=== PATIENT | female | born 1945 | race Hispanic/Latino ===

== ENCOUNTER 2018-12-30 23:12 | Emergency (ER) | payer OTHER ==
[~2018-12-30] VITALS: Ht 167.6 cm; Wt 77.1 kg
--- OUTSIDE RECORDS SUMMARY | 2018-12-30 23:14 | XMS REPORT ---
Author Author [facility] Address Unknown Phone Unavailable Care Team Providers Care Rn Endoscopy Name Role Phone BOGDAN ARGUETA Unavailable Unavailable Problems This patient has no known problems. Allergies, Adverse Reactions, Alerts This patient has no known allergies or adverse reactions. Medications This patient has no known medications. Results Test Description Test Time Test Comments Text Results Atomic Results Result Comments TISSUE EXAM 2018-12-25 09:12:00 Surgical Pathology Report Case: [id number] Authorizing Provider: Jak Argueta MD Collected: 12/19/2018 1012 Ord ering Location: [facility] PERIOPERATIVE Received: 12/19/2018 1158 SERVICES Pathologist: Abraham Huston MD Specimens: A) - Lymph Node, Axillary, Right, right axillary sentinel lymph node B) - Breast, Right, RIGHT BREAST LUMPECTOMY, SHORT STITICH SUPERIOR, LONG STITCH LATERAL A. LYMPH NODE, RIGHT SENTINEL, BIOPSY - ONE LYMPH NODE, NEGATIVE FOR CARCINOMA (0/1)B. BREAST, RIGHT NEEDLE LOCALIZED LUMPECTOMY - INFILTRATING DUCTAL CARCINOMA, MUCINOUS TYPE - GREATEST MICROSCOPIC MEASUREMENT : 14MM - HISTOLOGIC GRADE : 2/3 (2 + 2 + 2) BY ESBR CRITERIA - MITOTIC COUNT : 8 MITOSIS PER 10 HPF'S - NO LYMPHOVASCULAR INVASION SEEN - NO TUMOR INFILTRATING LYMPHOCYTES - SURGICAL MARGINS : NEGATIVE - CLOSEST INFERIOR : 5.5MM - POSTERIOR : 6MM - SUPERIOR : 10MM - ALL OTHERS > 10MM - NO INSITU CARCINOMA SEEN - BIOPSY SITE CHANGES (CLIP X 1) IDENTIFIED - COLUMNAR CELL CHANGES AND HYPERPLASIA - FOCALLY WITH INTRALUMINAL MUCIN SECRETION - ATYPICAL DUCTAL HYPERPLASIA, FOCAL - USUAL DUCTAL HYPERPLASIA - TINY MUCOCELE LIKE LESION - BENIGN BREAST TISSUE ASSOCIATED WITH CALCIFICATIONS Signing Pathologist Direct Phone Line: [phone] signed by Abraham Huston MD on 12/25/2018 at 9:12 AMTUMOR STAGING (PATHOLOGY) Anatomic site of tumor : right breastHistologic type : Infiltrating ductal carcinoma, mucinous typeHistologic grade : G2, moderately differentiatedTumor size : 14mmPrimary tumor (T) : pT1c Lymph node (N) : [id number] grouping : IAMargins : NegativeLYMPH NODE SUMMARYTotal # of sentinel lymph nodes : 1Total # of non-sentinel lymph nodes : 0Total # of positive sentinel lymph nodes : 0INVASIVE CARCINOMA OF THE BREAST (Breast Invasive - All Specimens)SPECIMEN Procedure: Excision (less than total mastectomy) Specimen Laterality: Right TUMOR Histologic Type: Mucinous carcinoma Glandular (Acinar) / Tubular Differentiation: Score 2 Nuclear Pleomorphism: Score 2 Mitotic Rate: Score 2 (4-7 mitoses per mm2) Overall Grade: Grade 2 (scores of 6 or 7) Tumor Size: Greatest dimension of largest invasive focus in Millimeters (mm): 14 Millimeters (mm) Tumor Focality: Single focus of invasive carcinoma Ductal Carcinoma In Situ (DCIS): Not identified Lobular Carcinoma In Situ (LCIS): No LCIS in specimen Tumor Extent: Accessory Findings: Lymphovascular Invasion: Not identified Dermal Lymphovascular Invasion: No skin present Microcalcifications: Present in non-neoplastic tissue Treatment Effect: No known presurgical therapy MARGINS Invasive Carcinoma Margins: Uninvolved by invasive carcinoma Distance from Closest Margin in Millimeters (mm): 5.5 Millimeters (mm) Closest Margin: Inferior LYMPH NODES Regional Lymph Nodes: Uninvolved by tumor cells Number of Lymph Nodes Examined: 1 Number of [place] Nodes Examined: 1 PATHOLOGIC STAGE CLASSIFICATION (pTNM, AJCC 8th Edition) TNM Descriptors: Not applicable Primary Tumor (Invasive Carcinoma) (pT): pT1c Regional Lymph Nodes (pN): Modifier: (sn): Only sentinel node(s) evaluated. Category (pN): pN0 A. 63083 X 1B. 32919 X 1A. Lymph node, right axillary sentinel; B. Breast, rightA. Received in formalin labeled with patient's name and "right axillary sentinel lymph node" consists of a piece of fibroadipose tissue measuring 3.2 x 2.0 x 1.0 cm. The specimen is bisected and reveals a lymph node with ink dye measuring 2.8 cm in greatest dimension. The specimen is entirely submitted as follows: A1 and A2 - one bisected lymph node; A3 - remaining fat.B. Received in formalin labeled with patient's name and "right breast lumpectomy" consists of a lump of fibroadipose tissue measuring 3.2 cm superior to inferior, 5.1 cm medial to lateral, and 3.0 cm superficial to deep, and weighing 18 gm. The specimen is inked as follows: superior - blue; inferior - red; posterior - black; anterior - yellow. The Faxitron examination reveals a guide wire and a small metallic clip. The specimen is serially sectioned parallel to superior-inferior axis into 8 slices. It reveals a spiculated mass (0.6 cm superior to inferior, 1.0 cm medial to lateral, and 0.6 cm superficial to deep) with mucinous nature, right adjacent to the metallic clip. It is 0.6 cm from the superior, 0.8 cm from the inferior, 2.0 cm from the medial, 2.0 cm from the lateral, 1.2 cm from the posterior, and 0.8 cm from the anterior margins. The entire specimen is submitted as follows: B1 - slice #1 (medial-most); B2 - slice #2; B3 and B4 - slice #3; B5 and B6 - slice #4 (tumor); B7 and B8 - slice #5 (tumor and clip); B9 and B10 - slice #6; B11 and B12 - slice #7; and B13 - slice #8 (medial most). Please see attached diagram. KEARA Performed.[facility], Department of Pathology, [address] [place] [address], MM, U/S, BREAST, PATHOLOGY, LOCAL, RIGHT 2018-12-19 08:46:00 Reason for exam:- >breast cancer #[id number] - MM, U/S, BREAST, PATHOLOGY, LOCAL, RIGHTULTRASOUND GUIDED WIRE LOCALIZATION RIGHT BREAST WITH POST DIGITAL MAMMOGRAPHIC IMAGIN12/19/2018PATIENT CONSENT: The procedure, risks and benefits, alternatives were discussed with the patient. Informed consent was obtained. A time-out was performed. A wire localization using ultrasound guidance was performed for the mass located in the right breast at 3-4 o'clock middle depth. This was described on the previous biopsy report. The skin was prepped in the usual manner. The localization was approached from the medial aspect. A wire was inserted into the targeted area under ultrasound guidance. Post placement digital mammographic imaging demonstrates the tip traverses the targeted area. IMPRESSION: WIRE LOCALIZATIONWire localization for the mass in the right breast at 3-4 o'clock middle depth was successful with no apparent post procedure complications. Frederick Orta M.D. pth/:12/19/2018 08:46:40 Meat Scrubber: Cher Luna RDDC, [facility] [id number]
--- OUTSIDE RECORDS SUMMARY | 2018-12-30 23:14 | XMS REPORT | Clinical Summary ---
Author Author [facility] Address Unknown Phone Unavailable Care Team Providers Care Hospice Aide Name Role Phone Nila Dejesus MD PCP Allergies No Known Allergies Medications End Date Status Medication Sig Dispensed Refills Start Date Active coenzyme Q10 100 mg Take 100 mg 0 capsule by mouth daily. Active loratadine (CLARITIN) 10 Take 10 mg by 0 mg tablet mouth daily. Active multivitamin Take 1 tablet 0 (MULTIVITAMIN) per tablet by mouth daily. Active olopatadine (PATADAY) 0.2 Apply to 0 % Drop eye(s). 12/29/2018 acetaminophen-codeine Take 1-2 30 tablet 0 (TYLENOL #3) 300-30 mg tablets by 9 per tablet mouth every 6 (six) hours as needed for up to 10 days. Max Daily Amount: 8 tablets 12/26/2018 ondansetron (ZOFRAN) 4 MG Take 1 tablet 20 tablet 0 tablet (4 mg total) 9 by mouth 3 (three) times daily as needed for Nausea for up to 7 days. Active Problems Problem Noted Date Breast cancer, right 12/19/2018 Encounters Care Team Description Date Type Specialty Jak Argueta MD LUMPECTOMY 12/19/2018 Surgery Jonathan Gordon Jr., MD 12/19/2018 Anesthesia Event Jak Argueta MD Malignant neoplasm of right breast in female, estrogen receptor positive, unspecified site of breast (HCC) (Primary Dx) 12/19/2018 Hospital Encounter Jak Argueta MD 12/18/2018 Outside Orders Central Scheduling Resource[facility] Phone 12/11/2018 Hospital Pre-Admission Testing Encounter after 12/29/2017 Social History Date Tobacco Use Types Packs/Day Years Used Never Smoker Smokeless Tobacco: Never Used Alcohol Use Drinks/Week oz/Week Comments Yes rare Sex Assigned at Date Recorded Not on file Industry Job Start Date Occupation Not on file Not on file Not on file Travel End Travel History Travel Start No recent travel history available. Last Filed Vital Signs Time Taken Vital Sign Reading 12/19/2018 11:15 AM CDT Blood Pressure 126/63 12/19/2018 11:15 AM CDT Pulse 64 12/19/2018 11:15 AM CDT Temperature 36.4 C (97.5 F) 12/19/2018 11:15 AM CDT Respiratory Rate 18 12/19/2018 11:15 AM CDT Oxygen Saturation 97% - Inhaled Oxygen - Concentration 12/19/2018 9:20 AM CDT Weight 82.6 kg (182 lb) 12/19/2018 9:20 AM CDT Height 165.1 cm (5' 5") 12/19/2018 9:20 AM CDT Body Mass Index 30.29 Plan of Treatment Not on file Procedures Comments Procedure Name Priority Date/Time Associated Diagnosis TISSUE EXAM AP Routine 12/19/2018 10:12 AM CDT BIOPSY/EXCISION,SENTINEL 12/19/2018 Abnormal mammogram with LYMPH NODE 10:00 AM CDT microcalcification Case Notes 60 MINS PER RHONA Special Needs (ULTRASOUN D NEEDLE LOCALIZATI ON SCHEDULED FOR 07 WITH PATSY) LUMPECTOMY 12/19/2018 Abnormal mammogram with 10:00 AM CDT microcalcification Case Notes 60 MINS PER RHNOA Special Needs (ULTRASOUN D NEEDLE LOCALIZATI ON SCHEDULED FOR 0730 WITH PATYS) US PATHOLOGY LOCALIZATION Routine 12/19/2018 RIGHT BREAST 8:34 AM CDT after 12/29/2017 Results * Tissue Exam (12/19/2018 10:12 AM CDT) Case Report Surgical Pathology [facility] Report [facility] Case: [id number] Authorizing Provider:Jak Argueta MDCollected: 12/19/2018 1012 Ordering Location: [facility] PERIOPERATIVE Received: 12/19/2018 1158 SERVICES Pathologist: Abraham Huston MD Specimens: A) - Lymph Node, Axillary, Right, right axillary sentinel lymph node B) - Breast, Right, RIGHT BREAST LUMPECTOMY, SHORT STITICH SUPERIOR, LONG STITCH LATERAL DIAGNOSIS A. LYMPH NODE, RIGHT SENTINEL, [facility] BIOPSY [facility] - ONE LYMPH NODE, NEGATIVE FOR CARCINOMA (0/1) B. BREAST, RIGHT NEEDLE LOCALIZED LUMPECTOMY - INFILTRATING [...] WITH CALCIFICATIONS Signing Pathologist Direct Phone Line: [phone] COMMENT TUMOR STAGING (PATHOLOGY) [facility] Anatomic site of tumor : right [facility] breast Histologic type : Infiltrating ductal carcinoma, mucinous type Histologic grade : G2, moderately differentiated Tumor size : 14mm Primary tumor (T) : pT1c Lymph node (N) : pN0 Stage grouping : IA Margins : Negative LYMPH NODE SUMMARY Total # of sentinel lymph nodes : 1 Total # of non-sentinel lymph nodes : 0 Total # of positive sentinel lymph nodes : 0 SYNOPTIC REPORT INVASIVE CARCINOMA OF THE [facility] BREAST(Breast Invasive - [facility] All Specimens) SPECIMEN Procedure:Excision (less than total mastectomy) Specimen Laterality:Right TUMOR Histologic Type:Mucinous carcinoma Glandular (Acinar) / Tubular Differentiation:Score 2 Nuclear Pleomorphism:Score 2 Mitotic Rate:Score 2 (4-7 mitoses per mm2) Overall Grade:Grade 2 (scores of 6 or 7) Tumor Size:Greatest dimension of largest invasive focus in Millimeters (mm): 14 Millimeters (mm) Tumor Focality:Single focus of invasive carcinoma Ductal Carcinoma In Situ (DCIS):Not identified Lobular Carcinoma In Situ (LCIS):No LCIS in specimen Tumor Extent: Accessory Findings: Lymphovascular Invasion:Not identified Dermal Lymphovascular Invasion:No skin present Microcalcifications:Pr esent in non-neoplastic tissue Treatment Effect:No known presurgical therapy MARGINS Invasive Carcinoma Margins:Uninvolved by invasive carcinoma Distance from Closest Margin in Millimeters (mm):5.5 Millimeters (mm) Closest Margin:Inferior LYMPH NODES Regional Lymph Nodes:Uninvolved by tumor cells Number of Lymph Nodes Examined:1 Number of [place] Nodes Examined:1 PATHOLOGIC STAGE CLASSIFICATION (pTNM, AJCC 8th Edition) TNM Descriptors:Not applicable Primary Tumor (Invasive Carcinoma) (pT):pT1c Regional Lymph Nodes (pN): Modifier:(sn): Only sentinel node(s) evaluated. Category (pN):pN0 CPT Code(s) A. [address] [facility] B. 58230 X 1 [facility] SPECIMEN SOURCE A. Lymph node, right axillary [facility] sentinel; B. Breast, right [facility] GROSS DESCRIPTION A. Received in formalin [facility] labeled with patient's name [facility] and "right axillary sentinel lymph node" consists of a piece of fibroadipose tissue measuring 3.2 x 2.0 x 1.0 cm. The specimen is bisected and reveals a lymph node with ink dye measuring 2.8 cm in greatest dimension. The specimen is entirely submitted as follows: A1 and A2 - one bisected lymph node; A3 - remaining fat. B. Received in formalin labeled with patient's name [...] #8 (medial most). Please see attached diagram. DK MICROSCOPIC DESCRIPTION A-B. Performed. [facility] Professional component [facility] was performed at Center, Department of [facility] Pathology, [address] [place] [address], [place] [address], Specimen Tissue - Lymph Node, Axillary, Right Tissue - Right breast structure (body structure) Performing Organization Address City/State/Zipcode Phone Number [address] [phone] [facility] * US pathology localization right breast (12/19/2018 8:34 AM CDT) Specimen Narrative Performed At [facility] #[id number] - MM, U/S, BREAST, PATHOLOGY, LOCAL, RIGHT ULTRASOUND GUIDED WIRE LOCALIZATION RIGHT BREAST WITH POST DIGITAL MAMMOGRAPHIC IMAGIN12/19/2018 PATIENT CONSENT: The procedure, risks and benefits, alternatives were discussed with the patient. Informed consent was obtained. A time-out was performed. A wire localization using ultrasound guidance was performed for the mass located in the right breast at 3-4 o'clock middle depth.This was described on the previous biopsy report.The skin was prepped in the usual manner.The localization was approached from the medial aspect.A wire was inserted into the targeted area under ultrasound guidance.Post placement digital mammographic imaging demonstrates the tip traverses the targeted area. IMPRESSION: WIRE LOCALIZATION Wire localization for the mass in the right breast at 3-4 o'clock middle depth was successful with no apparent post procedure complications. Frederick Orta M.D. pth/:12/19/2018 08:46:40 Field Advisor: Cher Luna [facility], [facility] [id number] Procedure Note Interface, External Ris In - 12/19/2018 11:32 AM CDT #[id number] - MM, U/S, BREAST, PATHOLOGY, LOCAL, RIGHT ULTRASOUND GUIDED WIRE LOCALIZATION RIGHT BREAST WITH POST DIGITAL MAMMOGRAPHIC IMAGIN12/19/2018 PATIENT CONSENT: The procedure, risks and benefits, alternatives [...] tip traverses the targeted area. IMPRESSION: WIRE LOCALIZATION Wire localization for the mass in the right breast at 3-4 o'clock middle depth was successful with no apparent post procedure complications. Frederick Orta M.D. pth/:12/19/2018 08:46:40 Field Advisor: Cher Luna RDMS, [facility] [id number] Performing Organization Address City/State/Zipcode Phone Number GE RIS after 12/29/2017 Insurance Payer Benefit Subscriber ID Type Phone Address Plan / Group [employer] [facility] Advance Directives For more information, please contact: [facility] [address] [place] [address] Date Inactivated Comments Code Status Date Activated 12/19/2018 1:38 PM Full Code 12/19/2018 7:57 AM This code status was determined by: Patient
[2018-12-31] MEDS ORDERED: CEFTRIAXONE SOD 1 GM VIAL IM ONE
[2018-12-31 01:18] LABS: CLARITY,URINE CLOUDY (CLEAR); COLOR,URINE RED (YELLOW); KETONES,URINE NEGATIVE (NEGATIVE); LEUKOCYTE ESTERASE ,URINE 1+ (NEGATIVE); NITRITE,URINE NEGATIVE (NEGATIVE)
[2018-12-31 01:19] LABS: BILIRUBIN,URINE NEGATIVE (NEGATIVE); PROTEIN,URINE DIPSTICK 1+ (NEGATIVE); URINE UROBILINOGEN 0.2 mg/dL (0.2 - 1)
[2018-12-31 01:20] LABS: BACTERIA,URINE RARE /HPF; EPITHELIAL CELLS,URINE FEW /LPF
[2018-12-31] MEDS ORDERED: LIDOCAINE HCL 1% LOCAL INJ 20 ML VIAL INJ ONE (01:30)
[2018-12-31 01:58] VITALS: BP 132/60
== END 2018-12-31 02:11 | disposition home or self-care (01) ==
LOC: ER 23:12
DX: R30.0 Dysuria (principal); R10.2 Pelvic and perineal pain; N30.91 Cystitis, unspecified with hematuria
CPT/HCPCS: 81001; 99283; J0696; J2001

== ENCOUNTER 2024-03-13 12:34 | Emergency (ER) | payer OTHER ==
[~2024-03-13] VITALS: Ht 167.6 cm; Wt 77.1 kg
[2024-03-13 12:37] VITALS: PULSE 77; RESP 16; TEMP 98.7
[2024-03-13 12:48] LABS: BASOPHILS % 0.7 % (0.0-1.0); EOSINOPHILS # (AUTO) 0.1 (0.0-0.4); EOSINOPHILS % 1.7 % (0.0-6.0); HEMATOCRIT 45.8 % (34.2-44.1); HEMOGLOBIN 14.8 g/dL (12.0-16.0); LYMPHOCYTES # (AUTO) 2.1 (1.0-3.2); LYMPHOCYTES % 35.4 % (18.0-39.1); MEAN CORPUSCULAR HEMOGLOBIN 29.6 pg (28-32); MEAN CORPUSCULAR HGB CONC 32.3 g/dL (31-35); MEAN CORPUSCULAR VOLUME 91.6 fL (81-99); MONOCYTES # (AUTO) 0.5 (0.2-0.8); MONOCYTES % 8.4 % (4.4-11.3); NEUTROPHILS # (AUTO) 3.2 (2.1-6.9); NEUTROPHILS % 53.3 % (38.7-80.0); PLATELET COUNT 172 x10e3/uL (140-360); RED CELL DISTRIBUTION WIDTH 13.2 % (11.7-14.4); WHITE BLOOD COUNT 6.05 x10e3/uL (4.8-10.8)
[2024-03-13 13:18] LABS: ALANINE AMINOTRANSFERASE 29 IU/L (0-55); ALBUMIN 4.2 g/dL (3.5-5.0); ALBUMIN/GLOBULIN RATIO 1.1 (0.8-2.0); ALKALINE PHOSPHATASE 88 IU/L (40-150); ANION GAP 15.7 mmol/L (8-16); BILIRUBIN,TOTAL 0.5 mg/dL (0.2-1.2); BLOOD UREA NITROGEN 13 mg/dL (7-26); BUN/CREATININE RATIO 16 (6-25); CALCIUM 9.3 mg/dL (8.4-10.2); CARBON DIOXIDE 25 mmol/L (22-29); CHLORIDE 104 mmol/L (98-107); CREATINE KINASE 58 IU/L (29-168); CREATININE, SERUM 0.83 mg/dL (0.57-1.11); EST GLOMERULAR FILTRATION RATE 73 ML/MIN (>=60); GLUCOSE 102 mg/dL (74-118); POTASSIUM 3.7 mmol/L (3.5-5.1); SODIUM 141 mmol/L (136-145); TOTAL PROTEIN 7.9 g/dL (6.5-8.1)
[2024-03-13 13:24] LABS: TROPONIN I < 0.001 ng/mL (0-0.300)
[2024-03-13] MEDS ORDERED: IOPAMIDOL 370 MG/ML 100 ML INFUS..BTL INJ ONE (13:44)
[2024-03-13] MEDS ORDERED: REGLAN5 MG PO (15:21)
[2024-03-13 15:59] VITALS: BP 140/106; PULSE 72; RESP 16; O2SAT 99
== END 2024-03-13 15:55 | disposition home or self-care (01) ==
LOC: ER 12:40
DX: R13.10 Dysphagia, unspecified (principal); R10.13 Epigastric pain; E78.5 Hyperlipidemia, unspecified; R94.31 Abnormal electrocardiogram [ECG] [EKG]; Z85.3 Personal history of malignant neoplasm of breast
CPT/HCPCS: 36415; 70491; 71260; 80053; 82550; 84484; 85025; 93005; 99284; Q9967

== ENCOUNTER 2024-09-13 08:17 | Emergency (ER) | payer MEDICARE, OTHER ==
[~2024-09-13] VITALS: Ht 167.6 cm; Wt 83.0 kg
[~2024-09-13 08:17] MED LIST: REGLAN5 MG PO
[2024-09-13 08:18] VITALS: TEMP 97.4
[2024-09-13 09:04] LABS: INR 0.89; PROTHROMBIN TIME 12.6 seconds (11.9-14.5)
[2024-09-13 09:05] LABS: BASOPHILS % 0.6 % (0.0-1.0); EOSINOPHILS # (AUTO) 0.1 (0.0-0.4); EOSINOPHILS % 1.9 % (0.0-6.0); HEMATOCRIT 49.1 % (34.2-44.1); HEMOGLOBIN 15.1 g/dL (12.0-16.0); LYMPHOCYTES # (AUTO) 2.1 (1.0-3.2); LYMPHOCYTES % 32.9 % (18.0-39.1); MEAN CORPUSCULAR HEMOGLOBIN 29.6 pg (28-32); MEAN CORPUSCULAR HGB CONC 30.8 g/dL (31-35); MEAN CORPUSCULAR VOLUME 96.3 fL (81-99); MONOCYTES # (AUTO) 0.5 (0.2-0.8); MONOCYTES % 7.1 % (4.4-11.3); NEUTROPHILS # (AUTO) 3.7 (2.1-6.9); NEUTROPHILS % 57.3 % (38.7-80.0); PARTIAL THROMBOPLASTIN TIME 42.7 seconds (23.8-35.5); PLATELET COUNT 159 x10e3/uL (140-360); WHITE BLOOD COUNT 6.47 x10e3/uL (4.8-10.8)
[2024-09-13 09:14] LABS: ALANINE AMINOTRANSFERASE 23 IU/L (0-55); ALBUMIN 4.2 g/dL (3.5-5.0); ALBUMIN/GLOBULIN RATIO 1.3 (0.8-2.0); ALKALINE PHOSPHATASE 84 IU/L (40-150); BILIRUBIN,TOTAL 0.9 mg/dL (0.2-1.2); BLOOD UREA NITROGEN 19 mg/dL (7-26); BUN/CREATININE RATIO 23 (6-25); CALCIUM 9.7 mg/dL (8.4-10.2); CARBON DIOXIDE 22 mmol/L (22-29); CHLORIDE 107 mmol/L (98-107); CREATININE, SERUM 0.81 mg/dL (0.57-1.11); EST GLOMERULAR FILTRATION RATE 75 ML/MIN (>=60); GLUCOSE 94 mg/dL (74-118); SODIUM 140 mmol/L (136-145); TOTAL PROTEIN 7.5 g/dL (6.5-8.1)
[2024-09-13 09:24] LABS: TROPONIN I < 0.001 ng/mL (0-0.300)
[2024-09-13 09:40] VITALS: PULSE 63; RESP 18; O2SAT 100
== END 2024-09-13 09:45 | disposition home or self-care (01) ==
LOC: ER 08:23
DX: R07.89 Other chest pain (principal); E78.5 Hyperlipidemia, unspecified; Z85.3 Personal history of malignant neoplasm of breast
CPT/HCPCS: 36415; 71045; 80053; 84484; 85025; 85610; 85730; 93005; 99283